=== PATIENT | male | born 1960 | race African-American/Black ===

== ENCOUNTER 2025-01-13 14:08 | Outpatient (CLI) | payer MEDICARE, SELFPAY ==
--- NOTE | ~2025-01-13 | MR_ITS ---
EXAMINATION: MR cervical spine wo con DATE: 01/13/2025 14:53 INDICATION: Cervical radiculopathy TECHNIQUE: Magnetic resonance imaging (MRI) of the cervical spine was performed without intravenous c ontrast. Sequences included sagittal T2-weighted FSE, sagittal T2-weighted FS FSE, sagittal T1-weight ed FSE, axial MERGE and axial T2-weighted FSE. COMPARISON: None FINDINGS: Straightening of the normal cervical lordosis. One-2 mm anterolisthesis C4 on C5 and C7 on T1. Verteb ral body heights are normal. Normal bone marrow signal throughout. Mild disc height loss at C4-C5, C5 -C6 and C7-T1. Cord signal intensity is normal. Visualized cervical soft tissues are unremarkable. Th e following disc levels are specifically discussed: C2-C3: The disc does not extend beyond the endplate margin. There is mild bilateral uncovertebral jim nt osteoarthritis. There is moderate left and severe right facet joint osteoarthritis. There is mild bilateral neural foraminal stenosis. There is no central canal stenosis. C3-C4: Disc is mildly bulging. There is mild left and moderate right uncovertebral joint osteoarthrit is. There is mild left and severe right facet joint osteoarthritis. There is mild left and moderate r ight neural foraminal stenosis. There is mild central canal stenosis. C4-C5: Disc is bulging with annular fissure. There is mild bilateral uncovertebral joint osteoarthrit is. There is severe bilateral facet joint osteoarthritis. There is mild left and moderate right neura l foraminal stenosis. There is mild central canal stenosis with mild flattening the ventral surface o f the cord. C5-C6: Disc is bulging with annular fissure and central disc extrusion with disc material extending u p to 9 mm cephalad to and 7 mm caudal to the level of the endplate margins and which indents the vent ral surface of the cord. There is moderate right and severe left uncovertebral joint osteoarthritis. There is mild right and moderate left facet joint osteoarthritis. There is mild right and mild to mod erate left neural foraminal stenosis. There is mild central canal stenosis. C6-C7: Disc is bulging. There is mild right and moderate left uncovertebral joint osteoarthritis. The re is severe bilateral facet joint osteoarthritis. There is mild bilateral neural foraminal stenosis. There is mild central canal stenosis. C7-T1: The disc does not extend beyond the more posterior T1 superior endplate margin. There is no un covertebral joint osteoarthritis. There is severe bilateral facet joint osteoarthritis. There is mild bilateral neural foraminal stenosis. There is no central canal stenosis. IMPRESSION: 1. Mild cervical spondylosis with multilevel moderate to severe cervical facet and uncovertebral oste oarthritis. Reviewed, dictated and finalized at location A. IMPRESSION: 1. Mild cervical spondylosis with multilevel moderate to severe cervical facet and uncovertebral osteoarthritis.
--- NOTE | ~2025-01-13 | XR_ITS ---
EXAM: XR lumbar spine min 4V DATE: 01/13/2025 15:16 HISTORY: Lumbar radiculopathy . COMPARISON: None available. FINDINGS: Exam limited by body habitus. 5 nonrib-bearing lumbar-type vertebral bodies. Pedicles intac t. Normal vertebral body alignment. Vertebral body heights preserved. Moderate disc space at L4-5 and field comp MR L-spine, same date L5-S1. Mild narrowing and osteophytosis at all remaining levels. Mo derate L4-5 and L5-S1 facet hypertrophy and sclerosis, with mild changes at the remaining lumbar leve ls and multilevel interspinous narrowing. Mild atherosclerotic aortic calcification without evident a neurysm. No fracture or dislocation. IMPRESSION: Multilevel lumbar degenerative disc disease, moderate at L4-5 and L5-S1. Moderate lower l umbar facet arthropathy. Reviewed, dictated and finalized at location K. IMPRESSION: Multilevel lumbar degenerative disc disease, moderate at L4-5 and L 5-S1. Moderate lower lumbar facet arthropathy.
--- NOTE | ~2025-01-13 | XR_ITS ---
EXAM: XR cervical spine 4-5V DATE: 01/13/2025 15:16 HISTORY: Cervical radiculopathy . COMPARISON: MR C-spine, same date. FINDINGS: Craniocervical association and atlantoaxial joint are aligned. No prevertebral soft tissue swelling. Loss of the normal cervical lordosis. 2 mm anterolisthesis at C4-5 which produces slightly in extension, noting that range of motion in both flexion and extension are severely limited. Verteb ral body heights are maintained. Normal disc spaces. Mild disc space narrowing and marked marginal os teophytosis at C3-4, C4-5, and C5-6. C7-T1 poorly visualized. Mild facet hypertrophy and sclerosis. IMPRESSION: Multilevel moderate mid and lower cervical spine degenerative disc disease. Multilevel mi ld facet arthropathy. Dynamic grade 1 listhesis at C4-5. Limited range of motion, which limits the ev aluation of dynamic listheses. Reviewed, dictated and finalized at location K. IMPRESSION: Multilevel moderate mid and lower cervical spine degenerative disc disease. Multilevel mild facet arthropathy. Dynamic grade 1 listhesis at C4-5. Limited range of motion, which limits the evaluation of dynamic listheses.
--- NOTE | ~2025-01-13 | MR_ITS ---
EXAMINATION: MR lumbar spine wo con DATE: 01/13/2025 14:59 INDICATION: Lumbar radiculopathy TECHNIQUE: Magnetic resonance imaging (MRI) of the lumbar spine was performed without intravenous con trast. Sequences included sagittal T2-weighted FSE, sagittal T2-weighted FS FSE, sagittal T1-weighted FSE, and axial T2-weighted FSE. COMPARISON: None FINDINGS: Alignment is normal. Minimal likely physiologic anterior wedging at T12 and L1. Mild fibrofatty degen erative endplate changes along the anterior superior endplate margin of T12-L5. Marrow signal is othe rwise unremarkable. Mild disc height loss at L2-L3 and L3-L4 and moderate disc height loss with annul ar fissures at L4-L5 and L5-S1. The conus medullaris terminates at L1-L2. There is normal signal in t he caudal spinal cord. Paravertebral soft tissues are unremarkable. The following disc levels are spe cifically discussed: T12-L1: Disc is mildly bulging. There is mild bilateral facet joint osteoarthritis. There is no neura l foraminal stenosis. There is no central canal stenosis. L1-L2: The disc does not extend beyond the endplate margin. There is moderate bilateral facet joint o steoarthritis. There is no neural foraminal stenosis. There is no central canal stenosis. L2-L3: Disc is mildly bulging. There is mild hypertrophy of the ligamentum flavum. There is moderate bilateral facet joint osteoarthritis. There is mild bilateral neural foraminal stenosis. There is mil d central canal stenosis. L3-L4: Disc is mildly bulging. There is hypertrophy of the ligamentum flavum. There is moderate to s evere bilateral facet joint osteoarthritis. There is mild bilateral neural foraminal stenosis. There is mild central canal stenosis. L4-L5: Disc is bulging. There is hypertrophy of the ligamentum flavum. There is severe bilateral face t joint osteoarthritis. There is moderate bilateral neural foraminal stenosis. There is mild central canal stenosis with mild narrowing of the left and right lateral recesses. L5-S1: Posterior disc osteophyte, complex with small inferiorly endplate osteophytes at L5 and annula r fissure with broad-based disc extrusion extending from foraminal zone to foraminal zone with disc m aterial extending a few millimeters cephalad and caudal to the level of the endplates. There is moder ate left and moderate to severe right facet joint osteoarthritis. There is moderate bilateral neural foraminal stenosis. There is mild central canal stenosis along with significant narrowing of the left and right lateral recesses. IMPRESSION: 1. Moderate lower lumbar predominant spondylosis. Reviewed, dictated and finalized at location A.
== END 2025-01-13 14:09 | disposition home or self-care (01) ==
LOC: MICIMG 14:11
PROVIDERS: PCP Internal Medicine; Visit Provider Physician Assistant
DX: M47.892 Other spondylosis, cervical region (principal); M50.31 Other cervical disc degeneration, high cervical region; M50.321 Other cervical disc degeneration at C4-C5 level; M50.322 Other cervical disc degeneration at C5-C6 level; M50.33 Other cervical disc degeneration, cervicothoracic region; M43.12 Spondylolisthesis, cervical region; M51.369 Other intervertebral disc degeneration, lumbar region without mention of lumbar back pain or lower extremity pain; M47.896 Other spondylosis, lumbar region
CPT/HCPCS: 72050; 72110; 72141; 72148